=== PATIENT | male | born 1990 | race Caucasian/White ===

== ENCOUNTER 2023-11-16 22:21 | Emergency (ER) | payer BC, OTHER | END 2023-11-16 23:24 | disposition home or self-care (01) | LOC: JD.ED 22:21 | DX: S29.011A Strain of muscle and tendon of front wall of thorax, initial encounter (principal); Z86.16 Personal history of COVID-19; X58.XXXA Exposure to other specified factors, initial encounter | CPT/HCPCS: 73030-26-RT; 73030-RT; 99282; 99283 ==